=== PATIENT | female | born 1970 | race Caucasian/White ===

== ENCOUNTER 2016-08-06 08:48 | Emergency (ER) | payer SELFPAY ==
[~2016-08-06] VITALS: Ht 154.9 cm; Wt 116.0 kg
[2016-08-06 08:55] VITALS: BP 123/64; PULSE 112; RESP 28; TEMP 98.5; O2SAT 93
[2016-08-06 09:06] VITALS: O2SAT 95
[2016-08-06 09:08] VITALS: BP 121/90; PULSE 115; RESP 20; O2SAT 96
--- NOTE | 2016-08-06 09:09 | PD ---
HPI Chief Complaint: Respiratory Symptoms Time Seen by Provider: 08:59 Travel History International Travel<30 days: No Contact w/Intl Traveler<30days: No Traveled to known affect area: No History of Present Illness HPI The patient is a 46-year-old female who presents to the emergency department for shortness of breath. The patient states she developed shortness of breath yesterday with cough and congestion. The patient now complains of anterior chest pain that is sharp, pleuritic, worse with inspiration, and intermittent. The patient also complains of shortness of breath with " whistling ", but denies any known history of reactive airway disease, bronchitis , COPD, or congestive heart failure. The patient does have a history of pneumonia as a child. The patient denies any tobacco use. The patient denies any history of pulmonary embolism, DVT, recent surgeries, recent hospitalizations, recent travel. She does note a dry and nonproductive cough. The patient denies any fever, chills, or sweats. The symptoms are moderate without any alleviating or exacerbating factors. PFSH Past Medical History Narrative Medical Hypothyroidism, chronic back pain, hyperlipidemia Past Surgical History Narrative Surgical section 2 Social History Tobacco Use: No Allergies-Medications (Allergen,Severity, Reaction): Coded Allergies: No Known Allergies (Unverified , 08/06/16) Reported Meds & Prescriptions Reported Meds & Active Scripts Active Reported Aleve (Naproxen Sodium) 220 Mg Tab 440 Mg PO BID PRN Sertraline (Sertraline HCl) 100 Mg Tab 150 Mg PO DAILY Levothyroxine (Levothyroxine Sodium) 75 Mcg Tab 75 Mcg PO DAILY Atorvastatin (Atorvastatin Calcium) 20 Mg Tab 20 Mg PO DAILY Tramadol (Tramadol HCl) 50 Mg Tab 50 Mg PO Q6H PRN Review of Systems Except as stated in HPI: all other systems reviewed are Neg General / Constitutional: No: Fever HENT: Positive: Congestion Cardiovascular: Positive: Chest Pain or Discomfort Respiratory: Positive: Cough, Shortness of Breath, Wheezing, Pleuritic Pain Gastrointestinal: No: Nausea, Vomiting, Abdominal Pain Musculoskeletal: No: Edema Physical Exam Narrative GENERAL: Awake, alert, pleasant 46-year-old female who appears her stated age and is in mild respiratory distress. SKIN: Warm and dry. HEAD: Atraumatic. Normocephalic. EYES: Pupils equal and round. No scleral icterus. No injection or drainage. ENT: No nasal bleeding or discharge. Mucous membranes pink and moist. NECK: Trachea midline. No JVD. CARDIOVASCULAR: Regular, tachycardic with a heart rate of 115. RESPIRATORY: Tachypnea with a respiratory rate of 24. Diffuse wheezing. GASTROINTESTINAL: Abdomen soft, non-tender, nondistended. No rebound tenderness. MUSCULOSKELETAL: No obvious deformities. No clubbing. No cyanosis. No edema. NEUROLOGICAL: Awake and alert. No obvious cranial nerve deficits. Motor grossly within normal limits. Normal speech. PSYCHIATRIC: Appropriate mood and affect; insight and judgment normal. Data Data Last Documented VS Vital Signs Date Time Temp Pulse Resp B/P Pulse Ox O2 Delivery O2 Flow Rate FiO2 08/06/16 09:16 98.2 110 22 132/69 94 Room Air Orders Complete Blood Count With Diff (08/06/16 09:04) Comprehensive Metabolic Panel (08/06/16 09:04) B-Type Natriuretic Peptide (08/06/16 09:04) D-Dimer (08/06/16 09:04) Act Partial Throm Time (Ptt) (08/06/16 09:04) Prothrombin Time / Inr (Pt) (08/06/16 09:04) Magnesium (Mg) (08/06/16 09:04) Ckmb (Isoenzyme) Profile (08/06/16 09:04) Troponin I (08/06/16 09:04) Iv Access Insert/Monitor (08/06/16 09:04) Electrocardiogram (08/06/16 09:04) Ecg Monitoring (08/06/16 09:04) Oximetry (08/06/16 09:04) Oxygen Administration (08/06/16 09:04) Chest, Single Ap (08/06/16 09:04) Sodium Chloride 0.9% Flush (Ns Flush) (08/06/16 09:15) Methylprednisolone So Succ Inj (Solumedr (08/06/16 09:15) Albuterol-Ipratropium Neb (Duoneb Neb) (08/06/16 09:15) Sodium Chlorid 0.9% 500 Ml Inj (Ns 500 M (08/06/16 09:15) Ct Pulmonary Angiogram (08/06/16 ) CKMB (08/06/16 09:10) CKMB% (08/06/16 09:10) Iohexol 350 Inj (Omnipaque 350 Inj) (08/06/16 10:32) Labs Laboratory Tests Test 08/06/16 09:10 White Blood Count 12.1 TH/MM3 Red Blood Count 4.27 MIL/MM3 Hemoglobin 13.7 GM/DL Hematocrit 39.1 % Mean Corpuscular Volume 91.6 FL Mean Corpuscular Hemoglobin 32.1 PG Mean Corpuscular Hemoglobin 35.1 % Concent Red Cell Distribution Width 12.6 % Platelet Count 219 TH/MM3 Mean Platelet Volume 9.0 FL Neutrophils (%) (Auto) 75.7 % Lymphocytes (%) (Auto) 12.0 % Monocytes (%) (Auto) 5.6 % Eosinophils (%) (Auto) 5.1 % Basophils (%) (Auto) 1.6 % Neutrophils # (Auto) 9.2 TH/MM3 Lymphocytes # (Auto) 1.4 TH/MM3 Monocytes # (Auto) 0.7 TH/MM3 Eosinophils # (Auto) 0.6 TH/MM3 Basophils # (Auto) 0.2 TH/MM3 CBC Comment DIFF FINAL Differential Comment Prothrombin Time 10.7 SEC Prothromb Time International 1.0 RATIO Ratio Activated Partial 26.4 SEC Thromboplast Time D-Dimer Quantitative (PE/DVT) 0.71 MG/L FEU Sodium Level 143 MEQ/L Potassium Level 3.8 MEQ/L Chloride Level 106 MEQ/L Carbon Dioxide Level 29.1 MEQ/L Anion Gap 8 MEQ/L Blood Urea Nitrogen 16 MG/DL Creatinine 0.80 MG/DL Estimat Glomerular Filtration 78 ML/MIN Rate Random Glucose 148 MG/DL Calcium Level 8.4 MG/DL Magnesium Level 1.9 MG/DL Total Bilirubin 0.5 MG/DL Aspartate Amino Transf 22 U/L (AST/SGOT) Alanine Aminotransferase 33 U/L (ALT/SGPT) Alkaline Phosphatase 110 U/L Total Creatine Kinase 186 U/L Creatine Kinase MB 4.1 NG/ML Troponin I LESS THAN 0.02 NG/ML B-Type Natriuretic Peptide 10 PG/ML Total Protein 7.4 GM/DL Albumin 3.6 GM/DL [facility] Medical Decision Making Medical Screen Exam Complete: Yes Emergency Medical Condition: Yes Medical Record Reviewed: Yes Interpretation(s) EKG reveals sinus tachycardia with a heart rate of 109. Nonspecific anterior T wave changes. Chest x-ray reveals normal examination Laboratory Tests Test 08/06/16 09:10 White Blood Count 12.1 TH/MM3 Red Blood Count 4.27 MIL/MM3 Hemoglobin 13.7 GM/DL Hematocrit 39.1 % Mean Corpuscular Volume 91.6 FL Mean Corpuscular Hemoglobin 32.1 PG Mean Corpuscular Hemoglobin 35.1 % Concent Red Cell Distribution Width 12.6 % Platelet Count 219 TH/MM3 Mean Platelet Volume 9.0 FL Neutrophils (%) (Auto) 75.7 % Lymphocytes (%) (Auto) 12.0 % Monocytes (%) (Auto) 5.6 % Eosinophils (%) (Auto) 5.1 % Basophils (%) (Auto) 1.6 % Neutrophils # (Auto) 9.2 TH/MM3 Lymphocytes # (Auto) 1.4 TH/MM3 Monocytes # (Auto) 0.7 TH/MM3 Eosinophils # (Auto) 0.6 TH/MM3 Basophils # (Auto) 0.2 TH/MM3 CBC Comment DIFF FINAL Differential Comment Prothrombin Time 10.7 SEC Prothromb Time International 1.0 RATIO Ratio Activated Partial 26.4 SEC Thromboplast Time D-Dimer Quantitative (PE/DVT) 0.71 MG/L FEU Sodium Level 143 MEQ/L Potassium Level 3.8 MEQ/L Chloride Level 106 MEQ/L Carbon Dioxide Level 29.1 MEQ/L Anion Gap 8 MEQ/L Blood Urea Nitrogen 16 MG/DL Creatinine 0.80 MG/DL Estimat Glomerular Filtration 78 ML/MIN Rate Random Glucose 148 MG/DL Calcium Level 8.4 MG/DL Magnesium Level 1.9 MG/DL Total Bilirubin 0.5 MG/DL Aspartate Amino Transf 22 U/L (AST/SGOT) Alanine Aminotransferase 33 U/L (ALT/SGPT) Alkaline Phosphatase 110 U/L Total Creatine Kinase 186 U/L Creatine Kinase MB 4.1 NG/ML Troponin I LESS THAN 0.02 NG/ML B-Type Natriuretic Peptide 10 PG/ML Total Protein 7.4 GM/DL Albumin 3.6 GM/DL CT pulmonary angiogram reveals patchy airspace disease throughout the right lung and a small area in the left lung. Could be multifocal bronchopneumonia. No evidence of pulmonary embolism. Differential Diagnosis Differential diagnosis includes influenza, reactive airway disease, bronchitis, pneumonia, pulmonary embolism, congestive heart failure, pleural effusion, flash pulmonary edema, acute coronary syndrome. Narrative Course IV was established, labs are drawn and sent, and the patient was placed on cardiac telemetry monitoring and continuous pulse oximetry monitoring. EKG was ordered and interpreted. D-dimer was sent to lab. The patient was administered Solu-Medrol 125 mg intravenously and duo nebs 2 with 500 cc of normal saline. The patient's d-dimer is positive at 0.71, therefore, CT pulmonary angiogram was ordered. Chest x-ray is negative, no evidence of pneumothorax or pneumonia. The patient does have tachycardia, hypoxia, shortness of breath, therefore, pulmonary embolism will be ruled out with CT pulmonary angiogram. CT pulmonary angiogram reveals patchy airspace disease, could be multifocal bronchopneumonia. No evidence of pulmonary embolism. The patient was reassessed at 10:50 AM, she states her symptoms have significantly improved. I had a discussion with the patient regarding 23 hour observation/ admission versus outpatient treatment. Patient states she feels well enough to go home. The patient will be discharged home on prednisone, antibiotics, and an albuterol inhaler. She is advised to return if symptoms worsen or progress. Diagnosis Primary Impression: Bronchopneumonia Patient Instructions: General Instructions Additional Instructions: Medications as directed. Follow-up with your primary physician. Return if symptoms worsen or progress. Med/Other Pt SpecificInfo: Prescription(s) given Scripts Prednisone (Deltasone)20 Mg Tab40 Mg PO DAILY 4 Days Ref 0 Prov:Abraham Meza MD 08/06/16 Albuterol 18 GM Inh (Ventolin Hfa 18 GM Inh)90 Mcg/Act Aer2 Puff INH Q4H PRN ( SHORTNESS OF BREATH) #1 INHALER Ref 0 Prov:Abraham Meza MD 08/06/16 Levofloxacin (Levaquin)500 Mg [id number] Mg PO DAILY #6 TAB Ref 0 Prov:Abraham Meza MD 08/06/16 Disposition: 01 DISCHARGE HOME Condition: Stable Abraham Meza MD Aug 06, 2016 09:09
[2016-08-06] MEDS ORDERED: methylPREDNISolone SOD SUCC 125 MG/2 ML VIAL IVP ONE (09:15)
[2016-08-06] MEDS ORDERED: SODIUM CHLORIDE 0.9% FLUSH 5 ML FLUSH IVF PRN (09:15)
[2016-08-06] MEDS ORDERED: SODIUM CHLORID 0.9% 500 ML INJ 500 ML IV ONE (09:15)
[2016-08-06 09:16] VITALS: BP 132/69; PULSE 110; RESP 22; TEMP 98.2; O2SAT 94
[2016-08-06 09:21] LABS: AUTOMATED NEUTROPHIL # 9.2 TH/MM3 (1.8-7.7); BASOPHIL # 0.2 TH/MM3 (0-0.2); BASOPHIL % 1.6 % (0.0-2.0); EOSINOPHIL # 0.6 TH/MM3 (0-0.4); EOSINOPHIL % 5.1 % (0.0-4.0); HEMATOCRIT 39.1 % (35.0-46.0); LYMPHOCYTE # 1.4 TH/MM3 (1.0-4.8); MEAN CELL VOLUME 91.6 FL (80.0-100.0); MEAN CORPUSCULAR HEMOGLOBIN 32.1 PG (27.0-34.0); MEAN CORPUSCULAR HGB CONC 35.1 % (32.0-36.0); MONO % 5.6 % (0.0-8.0); NEUT % 75.7 % (16.0-70.0); PLATELET COUNT 219 TH/MM3 (150-450); RED BLOOD COUNT 4.27 MIL/MM3 (4.00-5.30); RED CELL DISTRIBUTION WIDTH 12.6 % (11.6-17.2); WHITE BLOOD COUNT 12.1 TH/MM3 (4.0-11.0)
[2016-08-06] MEDS: RESP: ALBUTEROL 2.5 MG/IPRATROPIUM 0.5 MG NEB (SCH) INH ×2 (09:24→09:27)
[2016-08-06 09:35] LABS: HEMO FLAGS DIFF FINAL
--- NOTE | 2016-08-06 09:38 | RADHPO ---
EXAM DATE/TIME: 08/06/2016 09:25 [facility] COMPARISON: No previous studies available for comparison. INDICATIONS : Short of breath, chest pains MEDICAL HISTORY : None. SURGICAL HISTORY : None. ENCOUNTER: Initial ACUITY: 2 days PAIN SCORE: 4/10 LOCATION: Bilateral chest FINDINGS: A single view of the chest demonstrates the lungs to be symmetrically aerated without evidence of mas s, infiltrate or effusion. The cardiomediastinal contours are unremarkable. Osseous structures are intact. CONCLUSION: Normal examination. Juan Chu MD on August 06, 2016 at 9:36 Board Certified Radiologist. This report was verified electronically.
[2016-08-06 09:39] LABS: APTT (PATIENT) 26.4 SEC (24.3-30.1); PROTHROMBIN TIME - PATIENT 10.7 SEC (9.8-11.6)
[2016-08-06 09:54] LABS: CHLORIDE 106 MEQ/L (98-107); POTASSIUM 3.8 MEQ/L (3.5-5.1); SODIUM (NA) 143 MEQ/L (136-145)
[2016-08-06 09:55] LABS: ANION GAP 8 MEQ/L (5-15); BICARBONATE 29.1 MEQ/L (21.0-32.0); MAGNESIUM 1.9 MG/DL (1.5-2.5)
[2016-08-06 09:58] LABS: ALT (GPT) 33 U/L (10-53); GLOMERULAR FILTRATION RATE 78 ML/MIN (>89)
[2016-08-06 10:00] LABS: AST (GOT) 22 U/L (15-37); BLOOD UREA NITROGEN 16 MG/DL (7-18); TOTAL BILIRUBIN ADULT 0.5 MG/DL (0.2-1.0)
[2016-08-06] MEDS ORDERED: TRAM50TA PO (10:00)
[2016-08-06] MEDS ORDERED: NAPR220T95 PO (10:00)
[2016-08-06] MEDS ORDERED: ATOR20TA15 PO (10:00)
[2016-08-06] MEDS ORDERED: SERT-129 PO (10:00)
[2016-08-06] MEDS ORDERED: LEVO75TA3 PO (10:00)
[2016-08-06 10:01] LABS: ALKALINE PHOSPHATASE 110 U/L (45-117); CREATINE KINASE 186 U/L (26-192)
[2016-08-06 10:13] LABS: CKMB 4.1 NG/ML (0.5-3.6)
[2016-08-06] MEDS ORDERED: IOHEXOL 350 MG/ML 10 ML VIAL (for RAD DIAG) IV ONE (10:32)
--- NOTE | 2016-08-06 10:44 | RADHPO ---
EXAM DATE/TIME: 08/06/2016 10:16 [facility] COMPARISON: No previous studies available for comparison. INDICATIONS : Shortness of breath and substernal chest pain today. IV CONTRAST: 70 cc Omnipaque 350 (iohexol) IV RADIATION DOSE: 21.36 CTDIvol (mGy) MEDICAL HISTORY : None SURGICAL HISTORY : section. ENCOUNTER: Initial ACUITY: 1 day PAIN SCALE: 3/10 LOCATION: Bilateral substernal chest TECHNIQUE: Volumetric scanning of the chest was performed using a pulmonary embolism protocol MIP images were re constructed. Using automated exposure control and adjustment of the mA and/or kV according to patien t size, radiation dose was kept as low as reasonably achievable to obtain optimal diagnostic quality images. FINDINGS: PULMONARY ARTERIES: No filling defects are seen in the pulmonary arteries through the segmental level. LUNGS: Patchy groundglass infiltrates in the medial aspect of both lungs right greater left possible pneumon ia. No concerning pulmonary nodule is visualized. PLEURAE: There is no pleural thickening or pleural effusion. MEDIASTINUM: There is good visualization of the great vessels of the middle mediastinum. No evidence of mediastin al or hilar adenopathy/mass. MUSCULOSKELETAL: Within normal limits for patient age. MISCELLANEOUS: The visualized upper abdominal organs demonstrate no acute abnormality. CONCLUSION: Patchy airspace disease throughout the right lung a small area in the left lung. Could be multifocal bronchopneumonia. No evidence of pulmonary embolism Juan Chu MD on August 06, 2016 at 10:42 Board Certified Radiologist. This report was verified electronically.
[2016-08-06] MEDS ORDERED: PRED-503 PO (10:51)
[2016-08-06] MEDS ORDERED: VENTAER INH (10:51)
[2016-08-06] MEDS ORDERED: LEVA500T PO (10:51)
[2016-08-06 10:55] VITALS: BP 136/74; PULSE 104; RESP 18; O2SAT 96
[2016-08-06] MEDS ORDERED: LEVOFLOXACIN 500 MG TAB PO ONE (11:00)
--- NOTE | 2016-08-07 19:46 | EKG ---
Date Performed: 08/06/2016 Time Performed: 09:01:56 PTAGE: 46 years EKG: Sinus tachycardia Anterior T wave changes are nonspecific Borderline ECG NO PREVIOUS TRACING DOCTOR: Sacha Sorensen Interpretating Date/Time 08/07/2016 19:39:38
== END 2016-08-06 11:10 | disposition home or self-care (01) ==
LOC: PHED 08:48
DX: J18.0 Bronchopneumonia, unspecified organism (principal); R00.0 Tachycardia, unspecified; R09.02 Hypoxemia; R06.02 Shortness of breath; R07.9 Chest pain, unspecified; E03.9 Hypothyroidism, unspecified; E78.5 Hyperlipidemia, unspecified; R94.31 Abnormal electrocardiogram [ECG] [EKG]; Z87.39 Personal history of other diseases of the musculoskeletal system and connective tissue
CPT/HCPCS: 71010; 71275; 80053; 82550; 82552; 83735; 83880; 84484; 85025; 85379; 85610; 85730; 93005; 94640; 94664; 96361; 96374; 99285; J2930; J7040; Q9967